=== PATIENT | female | born 1980 | race Hispanic/Latino ===

== ENCOUNTER 2021-06-26 20:45 | Emergency (ER) | payer SELFPAY ==
[2021-06-26] MEDS ORDERED: IBUPROFEN 800 MG TAB PO ONE (23:18)
[2021-06-26] MEDS ORDERED: AMOXICILLIN/K CLAV 875/125MG TAB PO ONE (23:18)
--- NOTE | 2021-06-26 23:30 | Emergency Department Report ---
ED General Adult HPI - General Chief complaint: Earache Stated complaint: EAR PAIN/MOUTH NUMBNESS Time Seen by Provider: 06/26/21 23:12 Source: patient Mode of arrival: Ambulatory Limitations: No Limitations - History of Present Illness Initial comments: Patient presents for left ear pain and drainage x3 days. Patient states history of chronic ear infections. Is been no loss of hearing no equilibrium disturbance, there is no fever or chills no nausea no vomiting no sinus pain or pressure no sore throat. Symptoms are rated at 5/10 for normal ear infection for this patient. General regimen includes Augmentin and Ciprodex. Severity scale (0 -10): 0 - Related Data Previous Rx's Medication Instructions Recorded Last Taken Type Amoxicillin/Potassium Clav 1 each PO BID 7 Days #14 06/26/21 Unknown Rx [Augmentin 875-125 Tablet] Ciprofloxacin HCl/Dexameth 4 drop OS BID 7 Days #7.5 ml 06/26/21 Unknown Rx [Ciprodex Otic Suspension] Allergies Allergy/AdvReac Type Severity Reaction Status Date / Time codeine Allergy Itching Verified 06/26/21 22:56 ED Review of Systems ROS: Stated complaint: EAR PAIN/MOUTH NUMBNESS Other details as noted in HPI Constitutional: denies: chills, fever Eyes: denies: eye pain, eye discharge, vision change ENT: ear pain. denies: throat pain, dental pain, congestion Respiratory: denies: cough, shortness of breath, wheezing Cardiovascular: denies: chest pain, palpitations Endocrine: no symptoms reported Gastrointestinal: as per HPI. denies: abdominal pain, nausea, vomiting Genitourinary: denies: urgency, dysuria, discharge Musculoskeletal: denies: back pain, joint swelling, arthralgia Skin: denies: rash, lesions Neurological: denies: headache, weakness, paresthesias, vertigo Psychiatric: denies: anxiety, depression Hematological/Lymphatic: denies: easy bleeding, easy bruising ED Past Medical Hx - Past Medical History Previous Medical History?: Yes Hx Headaches / Migraines: Yes Hx Psychiatric Treatment: Yes - Medications Home Medications: Home Medications Medication Instructions Recorded Confirmed Last Taken Type Amoxicillin/Potassium Clav 1 each PO BID 7 Days #14 06/26/21 Unknown Rx [Augmentin 875-125 Tablet] Ciprofloxacin HCl/Dexameth 4 drop OS BID 7 Days #7.5 ml 06/26/21 Unknown Rx [Ciprodex Otic Suspension] ED Physical Exam - General Limitations: No Limitations General appearance: alert, in no apparent distress - Head Head exam: Present: normocephalic, normal inspection - Eye Eye exam: Present: normal appearance, PERRL, EOMI Pupils: Present: normal accommodation - ENT ENT exam: Present: normal orophraynx, mucous membranes moist - Expanded ENT Exam Expanded TM/Canal exam: Erythema: Left TM, Loss of Landmarks: Left TM, Canal Discharge: Left TM (Purulent), Canal Tenderness: Left TM Mouth exam: Present: normal external inspection. Absent: trismus Throat exam: Positive: other (Uvula midline no exudate lesions). Negative: tonsillar erythema, tonsillomegaly, tonsillar exudate - Neck Neck exam: Present: normal inspection, full ROM. Absent: tenderness, meningismus, lymphadenopathy, thyromegaly - Respiratory Respiratory exam: Present: normal lung sounds bilaterally. Absent: respiratory distress, wheezes, stridor - Cardiovascular Cardiovascular Exam: Present: regular rate, normal rhythm, normal heart sounds. Absent: systolic murmur, diastolic murmur, rubs, gallop - GI/Abdominal GI/Abdominal exam: Present: soft, normal bowel sounds. Absent: tenderness - Rectal Rectal exam: Present: deferred - Extremities Exam Extremities exam: Present: normal inspection, full ROM - Back Exam Back exam: Present: normal inspection, full ROM. Absent: tenderness - Neurological Exam Neurological exam: Present: alert, oriented X3, CN II-XII intact, normal gait - Expanded Neurological Exam Expanded Patient oriented to: Present: person, place, time Speech: Present: fluid speech Best Eye Response (Rebecca): (4) open spontaneously Best Motor Response (Rebecca): (6) obeys commands Best Verbal Response (Rebecca): (5) oriented [place] Total: 15 - Psychiatric Psychiatric exam: Present: normal affect, normal mood - Skin Skin exam: Present: warm, dry, intact, normal color. Absent: rash ED Course Vital Signs 06/26/21 22:58 Temperature 98.2 F Pulse Rate 97 H Respiratory 20 Rate Blood Pressure 108/65 [Right] O2 Sat by Pulse 99 Oximetry ED Medical Decision Making - Medical Decision Making This is straightforward otitis externa media plan Augmentin, Ciprodex, follow-up with ENT in 2 to 3 days. Return to emergency department should symptoms worsen. Patient verbalized agreement and understanding with discharge plan. Patient DC'd to home in stable condition at this time Critical care attestation.: If time is entered above; I have spent that time in minutes in the direct care of this critically ill patient, excluding procedure time. ED Disposition Clinical Impression: AOM (acute otitis media) Qualifiers: Otitis media type: serous Laterality: left Recurrence: recurrent Qualified Code(s): H65.05 - Acute serous otitis media, recurrent, left ear Disposition: 01 HOME / SELF CARE / HOMELESS Is pt being admited?: No Does the pt Need Aspirin: No Condition: Stable Instructions: Ear Drops, Adult, Otitis Media, Adult, [id number] Additional Instructions: Take medications as prescribed. Follow-up with ear nose and throat doctor as directed, turn to emergency department should symptoms worsen Prescriptions: Amoxicillin/Potassium Clav [Augmentin 875-125 Tablet] 1 each PO BID 7 Days #14 Ciprofloxacin HCl/Dexameth [Ciprodex Otic Suspension] 4 drop OS BID 7 Days #7.5 ml Referrals: KATY MCMILLAN MD [Staff Physician] - 3-5 Days Forms: Work/School Release Form(ED) Time of Disposition: 23:37
[2021-06-27 00:05] VITALS: BP 83/62
== END 2021-06-27 00:03 | disposition home or self-care (01) ==
LOC: ED 20:45
DX: H66.90 Otitis media, unspecified, unspecified ear (principal); Z88.8 Allergy status to other drugs, medicaments and biological substances
CPT/HCPCS: 99282